=== PATIENT | male | born 1930 ===

== ENCOUNTER 2017-03-25 13:03 | Inpatient (IN) | payer MEDICARE ==
--- NOTE | 2017-03-25 13:53 | ED PDOC ---
HPI: Psych/Substance Abuse Time Seen by Provider: 03/25/17 13:12 Chief Complaint (Nursing): Psychiatric Evaluation Chief Complaint (Provider): [email or web address] person Additional Complaint(s): 87yo M with HTN and pacemaker states that he has been have increasing anxiety and numbness/tingling to LE for past couple of months-states that he fell in house ktichen floor in November of 2016 and has been doing PTx but now unable to walk. pt states he is having anxiety due to this. Family however is saying that pt is shwoing signs of phobia unwilling to get out of bed to walk, dec appetite and crying during the day. pt denies SI/HI or depression. family believes he is depressed. family states that pt has been showing signs of dementia, forgetting things saying confusing things, and have noted that he is unstable Past Medical History Reviewed: Historical Data, Nursing Documentation, Vital Signs Vital Signs: Last Vital Signs Temp 98.4 F 03/25/17 13:10 Pulse 71 03/25/17 13:10 Resp 18 03/25/17 13:10 BP 164/90 H 03/25/17 13:10 Pulse Ox 99 03/25/17 13:10 - Medical History PMH: No Chronic Diseases - Family History Family History: States: No Known Family Hx - Allergies Allergies/Adverse Reactions: Allergies Allergy/AdvReac Type Severity Reaction Status Date / Time No Known Allergies Allergy Verified 03/25/17 13:10 Review of Systems ROS Statement: Except As Marked, All Systems Reviewed And Found Negative Constitutional: Negative for: Fever, Chills Musculoskeletal: Positive for: Other (hip discomfort) Physical Exam - Reviewed Nursing Documentation Reviewed: Yes Vital Signs Reviewed: Yes - Physical Exam Appears: Positive for: Well, Non-toxic, No Acute Distress Head Exam: Positive for: ATRAUMATIC, NORMAL INSPECTION, NORMOCEPHALIC Skin: Positive for: Normal Color, Warm, DRY Eye Exam: Positive for: Normal appearance, EOMI, PERRL ENT: Positive for: Normal ENT Inspection Neck: Positive for: Normal, Painless ROM Cardiovascular/Chest: Positive for: Regular Rate, Rhythm Respiratory: Positive for: CNT, Normal Breath Sounds Gastrointestinal/Abdominal: Positive for: Normal Exam, Bowel Sounds, Soft. Negative for: Tenderness Back: Positive for: Normal Inspection. Negative for: Vertebral Tenderness Extremity: Positive for: Normal ROM. Negative for: Tenderness, Swelling Neurologic/Psych: Positive for: Alert, Oriented - Laboratory Results Result Diagrams: 03/25/17 14:20 03/25/17 14:20 - ECG O2 Sat by Pulse Oximetry: 99 - Radiology X-Ray: Interpreted by Me X-Ray Interpretation: No Acute Disease - CT Scan/US head Other Rad Studies (CT/US): Radiology Report Reviewed (NAD) - Progress ED Course And Treament: pt will get CT of head due to family accounts that he is losing his balance, xray of hip and cbc/cmp/UA/ammonia/EKG chest xray Re-evaluation Time: 17:12 Condition: Re-examined (pt began crying-pt given xanax for acute anxiety) Medical Decision Making Medical Decision Making: pt given Kdur for low K+ Pt will be admitted for depression under MD Jd stable for admission. Disposition - Clinical Impression Clinical Impression: Depression - Patient ED Disposition Is Patient to be Admitted: Yes - Disposition Disposition Time: 17:13 Condition: STABLE Forms: [employer] (Ukrainian) - Pt Status Changed To: Hospital Disposition Of: Inpatient - Admit Certification Admit to Inpatient:: After my assessment, the patient will require hospitalization for at least two midnights. This is because of the severity of symptoms shown, intensity of services needed, and/or the medical risk in this patient being treated as an outpatient. - POA Present On Arrival: None
[2017-03-25 14:53] LABS: BASO # 0.1 K/uL (0.0-0.2); BASO % 0.7 % (0.0-2.0); EOS # 0.1 K/uL (0.0-0.7); EOS % 1.3 % (0.0-4.0); LYMPH # 1.2 K/uL (1.0-4.3); LYMPH % 14.8 % (20.0-40.0); MEAN CELL VOLUME 95.8 fl (80.0-94.0); MEAN CORPUSCULAR HEMOGLOBIN 32.7 pg (27.0-31.0); MEAN CORPUSCULAR HGB CONC 34.2 g/dL (33.0-37.0); MEAN PLATELET VOLUME 8.3 fl (7.2-11.7); MONO # 0.5 K/uL (0.0-0.8); MONO % 5.8 % (0.0-10.0); NEUT # 6.1 K/uL (1.8-7.0); NEUT % 77.4 % (50.0-75.0); NRBC % 0.1 % (0.0-0.0); RED CELL DISTRIBUTION WIDTH 13.8 % (11.5-14.5); WHITE BLOOD COUNT 7.9 K/uL (4.8-10.8)
[2017-03-25 14:56] LABS: ALB/GLOB RATIO 1.4 (1.0-2.1); ALKALINE PHOSPHATASE 99 U/L (38-126); ALT/SGPT 19 U/L (21-72); AST/SGOT 21 U/L (17-59); BILIRUBIN,TOTAL 1.3 mg/dl (0.2-1.3); BLOOD UREA NITROGEN 18 mg/dl (9-20); CARBON DIOXIDE 28 mmol/L (22-30); CHLORIDE 103 mmol/L (98-107); GFR AFRICAN-AMERICAN > 60; GLUCOSE,RANDOM 122 mg/dL (75-110); POTASSIUM 3.3 MMOL/L (3.6-5.0); SODIUM 141 mmol/l (132-148); TOTAL PROTEIN 6.8 G/DL (6.3-8.2)
[2017-03-25 15:19] LABS: RBC URINE 4 /hpf (0-3); URINE BACTERIA RARE (<OCC); URINE BILIRUBIN NEGATIVE (NEGATIVE); URINE BLOOD NEGATIVE (NEGATIVE); URINE COLOR YELLOW (YELLOW); URINE GLUCOSE (UA) NEG (Normal); URINE KETONE NEGATIVE (NEGATIVE); URINE LEUKOCYTE ESTERASE NEG Leu/uL (Negative); URINE PROTEIN 30 mg/dL (NEGATIVE); URINE UROBILINOGEN 0.2-1.0 mg/dL (0.2-1.0); WBC URINE 2 /hpf (0-5)
--- NOTE | 2017-03-25 16:18 | CT ---
PROCEDURE: CT HEAD WITHOUT CONTRAST. HISTORY: memory changes, gait changes COMPARISON: None available. TECHNIQUE: Axial computed tomography images were obtained through the head/brain without intravenous contrast. Radiation dose: Total exam DLP = 912.04 mGy-cm. This CT exam was performed using one or more of the following dose reduction techniques: Automated exposure control, adjustment of the mA and/or kV according to patient size, and/or use of iterative reconstruction technique. FINDINGS: HEMORRHAGE: No acute parenchymal, subarachnoid nor extra-axial hemorrhage. BRAIN: Moderate to fairly significant diffuse/ confluent chronic white matter ischemic changes seen extending peripherally into the deep and subcortical white matter both cerebral hemispheres. There also appears to be some extension of these changes into white matter tracts of both basal nuclei. . No obvious parenchymal nor extra-axial mass or collection seen on this noncontrast study. Vascular calcifications both carotid siphons. Moderate generalized volume loss. VENTRICLES: No evidence of obstructive hydrocephalus. CALVARIUM: No acute calvarial fracture seen. PARANASAL SINUSES: Minimal mucosal thickening seen within a few ethmoid air cells extending superiorly into the frontal sinus. There is also minimal mucosal thickening in the sphenoid sinus MASTOID AIR CELLS: Unremarkable as visualized. No inflammatory changes. OTHER FINDINGS: None. IMPRESSION: No acute intracranial hemorrhage. Moderate to fairly significant chronic white matter ischemic changes that extend peripherally into the deep and subcortical white matter both cerebral hemispheres as well as into the white matter tracts of both basal nuclei.
[2017-03-25] MEDS ORDERED: Potassium Chloride 10 mEq ER Tab PO ONE ×2 (16:19→16:31)
[2017-03-25 18:02] VITALS: O2SAT 94
--- NOTE | 2017-03-25 18:36 | RAD ---
HISTORY: medical exam COMPARISON: No prior. FINDINGS: LUNGS: Suspect minor bibasilar atelectasis and or scarring. . There is a vague nodular type density in the right lateral infrahilar region that probably represents vessel on end artifact. Small nodule or a cluster of small calcification not excluded not excluded. . Followup the CT scan chest recommended PLEURA: No significant pleural effusion identified, no pneumothorax apparent. CARDIOVASCULAR: Heart size is within range of normal. Aorta is ectatic and uncoiled. In situ bipolar pacemaker. OSSEOUS STRUCTURES: Minor multilevel degenerative spondylosis of the thoracic spine. There is also a very minor dextroscoliosis centered in the lower thoracic region. VISUALIZED UPPER ABDOMEN: Normal. OTHER FINDINGS: None. IMPRESSION: Suspect minor bibasilar atelectasis and or scarring. . There is a vague nodular type density in the right lateral infrahilar region that probably represents vessel on end artifact. Small nodule or a cluster of small calcification not excluded not excluded. . Followup the CT scan chest recommended. Note this report was placed in PA review folder for followup
[2017-03-25] MEDS ORDERED: Alum-Mag Hydrox-Simethicone Susp (30 mL) PO PRN (19:55)
[2017-03-25] MEDS ORDERED: Bismuth Subsalicylate 262 mg/15 ml Sus (240 ml) PO PRN (19:55)
[2017-03-25] MEDS ORDERED: Magnesium Hydroxide Susp 30 ml UD PO PRN (19:55)
--- NOTE | 2017-03-25 20:04 | PCM.BM ---
<Claudine Campuzano - Last Filed: 03/25/17 20:01> Treatment Plan Problems - Problems identified on initial assessmt hopelessness/helplessness Date Initiated: 03/25/17 Time Initiated: 20:02 Assessment reference: NA Status: Active Altered Sleep Patterns Date Initiated: 03/25/17 Time Initiated: 20:03 Assessment reference: NA Status: Active Treatment assets and liabiliti Patient Assests: adapts well, cooperative, self-reliant, good support system, negotiates basic needs Patient Liabilities: medical problems - Milieu Protocol Maintain good personal hygiene: daily Encourage regular showers, daily Remind patient to perform daily oral care, other Assist patient to perform ADL's (prn) Conduct patient checks and document Observation sheet: Q15 minutes, Constant Maintain personal safety: every shift Educate patient to report safety concerns to staff, every shift Monitor environment for contraband/sharps Medication safety: Monitor for expected outcome, potential side effects: every shift, Assess barriers to learning: every shift, Assess readiness for medication education: every shift <Louise Coburn - Last Filed: 03/26/17 08:45> - Diagnosis (1) Depression Status: Acute Interventions: Medication management, Individual and group therapy, psychoeducation 03/26/17 08:45 <Shannan Gordon - Last Filed: 03/27/17 11:38> Family Contact Family involvement: Family/SO is involved Family contact: Patient agrees to contact Family contact name: Pat Brar Family contacted how many times per week?: 2 Family contact comment: [phone] - Goals for Treatment Patient goals for treatment: "The desire to get better again. I have grecia that God will help me get better." Discharge/Continuing Care - Education Needs Education Needs: Family Medication, Family Diagnosis/Disease Process, Family Coping Skills, Family Placement options, Family Community resources, Family Activities of Daily Living, Family Nutrition, Family Uses of Medical Equipment, Family Health Practices/Safety, Family Personal Hygiene/Grooming, Family Aftercare Safety Plan, Patient Medication, Patient Diagnosis/Disease Process, Patient Coping Skills, Patient Placement options, Patient Community resources, Patient Activities of Daily Living, Patient Nutrition, Patient Uses of Medical Equipment, Patient Health Practices/Safety, Patient Personal Hygiene/Grooming, Patient Aftercare Safety Plan - Discharge Discharge Criteria: Tolerates medication w/o severe side effects, Normal sleep pattern, Ability to care for self, Reduction of target symptoms Discharge to:: Other (Subacute Rehabilitation) - Additional Comments 03/27/17 11:23 Pt discussed in team meeting. Pt's progress on the unit discussed. Pt evaluated by PT and recommended CINDY. Pt's medications reviewed and discussed. Pt's social and medical issues discussed. Auto Technician Mechanic will contact Pat ascencio for collateral information and to discuss team meeting and treatment plan. Pt provided process description writer with verbal autho/consent to contact Pat ascencio 03/27/17 11:36 - Treatment Team Participation Discussed with Family/SO: Yes (Treatment plan will be discussed with family via telephone) Was Patient/Family/SO present at Treatment Team Meeting: Yes
[2017-03-26 07:47] LABS: BASO # 0.1 K/uL (0.0-0.2); BASO % 0.9 % (0.0-2.0); EOS # 0.2 K/uL (0.0-0.7); EOS % 2.5 % (0.0-4.0); HEMATOCRIT 41.1 % (35.0-51.0); LYMPH # 1.3 K/uL (1.0-4.3); LYMPH % 20.9 % (20.0-40.0); MEAN CORPUSCULAR HEMOGLOBIN 32.8 pg (27.0-31.0); MEAN CORPUSCULAR HGB CONC 34.2 g/dL (33.0-37.0); MEAN PLATELET VOLUME 8.2 fl (7.2-11.7); MONO # 0.5 K/uL (0.0-0.8); MONO % 8.4 % (0.0-10.0); NEUT # 4.2 K/uL (1.8-7.0); NEUT % 67.3 % (50.0-75.0); RED CELL DISTRIBUTION WIDTH 13.8 % (11.5-14.5); WHITE BLOOD COUNT 6.3 K/uL (4.8-10.8)
[2017-03-26 08:03] LABS: BLOOD UREA NITROGEN 18 mg/dl (9-20); CARBON DIOXIDE 32 mmol/L (22-30); CHLORIDE 102 mmol/L (98-107); CHOLESTEROL 133 mg/dL (0-199); GFR AFRICAN-AMERICAN > 60; GLUCOSE,RANDOM 120 mg/dL (75-110); POTASSIUM 3.7 MMOL/L (3.6-5.0); SODIUM 141 mmol/l (132-148)
[2017-03-26 08:19] LABS: T4 8.85 ug/dl (5.5-11.0)
[2017-03-26 08:32] LABS: THYROID STIMULATING HORMONE 1.32 mIU/ML (0.46-4.68)
--- NOTE | 2017-03-26 08:51 | PCM.PSYCH ---
Initial Psychiatric Evaluation - Initial Psychiatric Evaluation Type of Admission: Voluntary Legal Status: Capacity Chief Complaint (in patient's own words): I'm depressed. Patient's Reaction to Hospitalization: 87Y/O MALE WHO WAS BROUGHT TO THIS ER BY HIS FAMILY AT THE RECOMMENDATION OF HIS PMD, DR. CARDOSO, FOR CRISIS EVALUATION AND POSSIBLE GEROPSYCHIATRIC ADMISSION DUE TO OVERWHELMING ANXIETY AND DEPRESSION THAT HAS COMPLETELY DELIBITATED THIS PT AND LEFT HIM UNABLE TO FUNCTION. PT REPORTED THAT HE FELL IN HIS KITCHEN FOUR MONTHS AGO AND EVER SINCE THAT MOMENT HE CANNONT WALK WHEREAS HE IS OVERWHELMINGLY AFRAID THAT HE WILL FALL AGAIN. HE REPORTED THAT HE IS BED RIDDEN AND ALL HE DOES IS CRY. HE ALSO REPORTED THAT HE IS VERY NERVOUS ALL THE TIME BECAUSE HE HAS PROFOUND THOUGHTS OF FALLING OUT OF BED AND THESE INTRUSIVE THOUGHTS CAUSE HIM TO NOT BE ABLE TO SLEEP WHEREAS HE FEARS FALLING ALL THE TIME. HE REPORTED THAT HE IS DESPERATE FOR HELP BECAUSE HE CANNOT LIVE LIKE THIS ANYMORE. HE REPORTED THAT HE REMEMBERED A TIME WHEN HE WAS VIBRANT AND ACTIVE AND NOW HIS ANXIETY AND DEPRESSION IS SO BAD THAT IT HAS LEFT HIM FEELING HOPELESS AND HELPLESS. HE DENIED SI/HI OR ANY THOUGHTS OF SELF HARM. HE DENIED HAVING A/V/T HALLUCINATIONS; NOR WAS HE OBSERVED TO BE RESPONDING TO INTERNAL/EXTERNAL STIMULI. HE DISPLAYED NO SIGNS OF PSYCHOSIS OR PSYCHIATRIC DANGEROUSNESS. THE PT WAS ALERT AND ORIENTED X3. HE REPORTED SIGNIFICANT SLEEP AND APPETITE DISTURBANCES. COLLATERAL OBTAINED BY ANIMAL PATHOLOGY TEACHER FROM PT'S DAUGHTER JOSE RAMOS [phone] REVEALS THAT THE PT FELL 4 MONTHS AGO IN HIS KITCHEN AND EVER SINCE THEN HE HAS BEEN BED RIDDEN WHEREAS HE HAS AN EXTREME PHOBIA OF FALLING AGAIN THEREFORE HE DOES NOT TRY TO WALK. SHE REPORTED THAT HE IS EXTREMELY ANXIOUS AND DEPRESSED ALL THE TIME. SHE REPORTED THAT HE IS EXPERIENCING A DECREASE IN HIS SLEEP PATTERN AND APPETITE. SHE REPORTED THAT HE CONSTANTLY IS CRYING AND FEELS HELPLESS AND HOPELESS. PT'S DAUGHTER REPORTED THAT THE PT'S PMD, DR. CARDOSO, ADVISED THEM TO BRING THE PT TO THIS HOSPITAL FOR EVALUATION FOR POSSIBLE ADMISSION TO THE GEROPYSCHIATRIC UNIT. SHE REPORTED THAT THE PT IS IN DIRE NEED OF ADMISSION. PPHX: DENIES PAST PSYCH HX OR TX W/ MEDICTIONS. NO H/O SUICIDE ATTEMPTS, NO CURRENT SUICIDAL IDEATION/PLAN/INTENT. PMHX: HTN, +PACEMAKER, BPH SHX: DENIES DRUGS/ETOH/CIG. . LIVES W/ AND TWO CHILDREN. FROM [place]. FHX: NO KNOWN FAMILY H/O MENTAL ILLNESS Current Medications: Active Medications Generic Name Dose Route Start Last Admin Trade Name Freq PRN Reason Stop Dose Admin Acetaminophen 650 mg 03/25/17 19:55 Tylenol 325mg Tab PO Q4 PRN Pain, moderate (4-7) Al Hydrox/Mg Hydrox/Simethicone 30 ml 03/25/17 19:55 Maalox Plus 30 Ml PO Q4 PRN Dyspepsia Bismuth Subsalicylate 524 mg 03/25/17 19:55 Pepto-Bismol PO Q4 PRN Diarrhea Hydralazine HCl 50 mg 03/25/17 21:00 03/25/17 21:24 Apresoline PO 50 mg Q12 SANGEETA Administration Lisinopril 20 mg 03/26/17 09:00 Zestril PO DAILY SANGEETA Lorazepam 0.5 mg 03/25/17 19:55 03/25/17 23:56 Ativan PO 04/08/17 19:56 0.5 mg HS PRN Administration Insomnia Lorazepam 0.5 mg 03/25/17 19:55 Ativan PO 04/08/17 19:56 Q6 PRN Anixety/Agitation Magnesium Hydroxide 30 ml 03/25/17 19:55 Milk Of Magnesia PO HS PRN Constipation Metoprolol Tartrate 100 mg 03/26/17 09:00 Lopressor PO BID SANGEETA Tamsulosin HCl 0.4 mg 03/26/17 09:00 Flomax PO DAILY SANGEETA Past Psychiatric History - Past Psychiatric History Previous Treatment History: None Pertinent Medical Hx (Current Medical&Sleep Prob, Allergies): Allergies Allergy/AdvReac Type Severity Reaction Status Date / Time divalproex sodium AdvReac Mild increase Verified 03/25/17 19:11 [From Depakote] restlessness Lisinopril [Zestril] 20 mg PO DAILY 03/25/17 Metoprolol Tartrate 100 mg PO BID 03/25/17 Tamsulosin [Flomax] 0.4 mg PO DAILY 03/25/17 hydrALAZINE [hydralazine Hydrochloride] 50 mg PO Q12 03/25/17 Review of Systems - Psychiatric Psychiatric: As Per HPI, Abnormal Sleep Pattern, Anhedonia, Anxiety, Change in Appetite, Confusion, Depression, Difficulty Concentrating, Hopelessness, Memory Loss Mental Status Examination - Personal Presentation Personal Presentation: Looks stated age - Affect Affect: Depressed (Tearful) - Motor Activity Motor Activity: Calm - Reliability in Providing Information Reliability in Providing Information: Fair - Speech Speech: Organized - Mood Mood: Depressed - Formal Thought Process Formal Thought Process: No Impairment - Hallucinations/Delusions Additional comments: No AH/VH/paranoia/delusions - Obsessions/Compulsions Obsessions: No Compulsions: No - Cognitive Functions Orientation: Person, Place, Situation, Time Sensorium: Alert Attention/Concentration: Attentive Estimate of Intelligence: Average Judgement: Intact, as evidence by: Good judgement, Intact, as evidence by: Insight regarding need for hospitalization Memory: Recent intact, as evidence by: Ability to recall events of the day, Remote intact, as evidenced by: Abilit to recall sig. life events - Risk Risk: Diminished functioning - Strength & Assets Inventory Strength & Assets Inventory: Family support, Cooperative - Limitations Limitations: Decreased memory, recent DSM 5 DX - DSM 5 DSM 5 Diagnosis: Major Depressive Disorder, Generalized Anxiety Disorder, Specific Phobia - Recommended/Plan of Treatment Treatment Recommendations and Plan of Treatment: Major Depressive Disorder, Generalized Anxiety Disorder, Specific Phobia -Admit to geropsychiatry unit -Start Zoloft 50 mg PO Daily -Ativan 0.5 mg PO PRN anxiety -Individual and group therapy -Obtain collateral history -Physical therapy -Medicine consult -Disposition planning -Psychology consult to evaluate for cognitive impairment Projected ELOS: 5-8 days Discharge Plan and Discharge Criteria: -Discharge when psychiatrically stable - Smoking Cessation Smoking Cessation Initiated: No Reason for not providing: Not indicated
[2017-03-26 08:52] LABS: IRON 64 ug/dL (49-181)
[2017-03-26 17:33] LABS: FOLATE > 20.0 ng/mL
--- NOTE | 2017-03-27 08:43 | RAD ---
PROCEDURE: The pelvis and bilateral hips dated HISTORY: COMPARISON: No prior study available for comparison allComparison TECHNIQUE: Frontal view of the pelvis and frogleg lateral views of the right and left hips performed. FINDINGS: No evidence of acute displaced fracture nor dislocation. The osseous structures appear intact. Both femoral heads appropriately located within the respective acetabula. Tiny radiopaque densities seen overlying both hip joints nonspecific. . Minor degenerative changes with spurring of the superolateral margins of the acetabular roofs. Mild sclerosis both SI joints. Mild degenerative spondylosis lumbar spine IMPRESSION: No evidence of acute displaced fracture nor dislocation.
--- NOTE | 2017-03-27 08:43 | PCM.PYCHPN ---
Psychiatric Progress Note - Psychiatric Progress Note Patient seen today, length of contact: Patient evaluated, case discussed with team, chart reviewed, 35 min Patient Chief Complaint: I'm depressed. Problems Identified/Issues Discussed: Patient continues to report severe anxiety. He is afraid to leave his bed. He also reports feeling depressed and is tearful at times. He is observed eating calmly. No psychosis/delusions/SI/HI. Medication Change: Yes (Start Ativan 0.25 mg PO BID) Medical Record Reviewed: Yes Consults ordered or reviewed: Physical Therapy consult, medicine consult Mental Status Examination - Cognitive Function Orientation: Person, Place, Situation, Time Memory: Impaired Fund of Knowledge: WNL Decription of patient's judgement and insights: Fair I/J - Mood Mood: Depressed, Anxious - Affect Affect: Depressed (Tearful) - Speech Speech: Soft - Formal Thought Process Formal Thought Process: No Impairment Psychotic Thoughts and Behaviors: No AH/VH/paranoia/delusions - Suicidal Ideation Suicidal Ideation: No - Homicidal Ideation Homicidal Ideation: No Goal/Treatment Plan - Goal/Treatment Plan Need for Continued Stay: Remain at risks for inpatient hospitalization, Severe depression anxiety, Discharge may exacerbated symptoms Progress Toward Problem(s) and Goals/Treatment Plan: Major Depressive Disorder, Generalized Anxiety Disorder, Specific Phobia -Continue Zoloft 50 mg PO Daily -Start Ativan 0.25 mg PO BID -Individual and group therapy -Obtain collateral history -Physical therapy -Medicine consult -Disposition planning -Psychology consult to evaluate for cognitive impairment Estimated Date of D/C: 03/30/17 - Smoking Cessation Smoking Cessation Initiated: No Reason for not providing: Not indicated
--- NOTE | 2017-03-27 12:32 | CP.PCM.CON ---
History of Present Illness - History of Present Illness History of Present Illness: History obtained from pt and chart PMD : Dr Garcia Chief Complaint : "I came for depession and anxiety" HPI : 87 y/o gent with Hx of HTN, Arrhythmia s/p Pacemaker placement , BPH, was brought in by family upon the recommendation of his PMD bec since pt fell 4 months ago , he has been very anxious and afraid to get out of bec in fear of falling again. Patient tells me that he has been feeling depressed because he could not go out of his home bec he is afraid he will fall again. he states that he has been very weak since he fell 4 mos ago. Denies any pain and able to move all his extremities. Denies CP, no SOB, no cough , no abd pain, no fever. Review of Systems - Review of Systems All systems: reviewed and no additional remarkable complaints except - Constitutional Constitutional: Lethargy, Weakness. absent: Fever, Headache Additional comments: feel once at home 4 mos ago - EENT Eyes: absent: Change in Vision Nose/Mouth/Throat: absent: Nasal Congestion, Nasal Discharge, Sore Throat - Cardiovascular Cardiovascular: absent: Chest Pain, Chest Pain with Activity, Diaphoresis, Dyspnea, Dyspnea on Exertion - Respiratory Respiratory: absent: Cough, Dyspnea, Hemoptysis - Gastrointestinal Gastrointestinal: absent: Abdominal Pain, Nausea, Vomiting - Genitourinary Genitourinary: Urinary Frequency. absent: Dysuria - Musculoskeletal Musculoskeletal: Muscle Weakness. absent: Back Pain - Integumentary Integumentary: absent: Lesions - Neurological Neurological: absent: Dizziness, Focal Weakness, Sensory Deficit - Psychiatric Psychiatric: Anxiety, Depression - Endocrine Endocrine: absent: Polydipsia, Polyphagia, Polyuria - Hematologic/Lymphatic Hematologic: absent: Easy Bleeding, Easy Bruising Past Patient History - Infectious Disease Hx of Infectious Diseases: None - Tetanus Immunizations Tetanus Immunization: Unknown - Past Medical History & Family History Past Medical History?: Yes Past Family History: Reviewed and not pertinent - Past Social History Smoking Status: Never Smoked Chewing Tobacco Use: No Cigar Use: No Alcohol: None Drugs: Denies Home Situation {Lives}: With Family Domestic Violence: Negative - CARDIAC Hx Cardiac Disorders: Yes Hx Hypertension: Yes Hx Pacemaker: Yes - PULMONARY Hx Respiratory Disorders: No Hx Tuberculosis: No - NEUROLOGICAL HX Cerebrovascular Accident: No - HEENT Hx HEENT Problems: No Hx Cataracts: Yes (L eye) - RENAL Hx Chronic Kidney Disease: No - ENDOCRINE/METABOLIC Hx Endocrine Disorders: No - HEMATOLOGICAL/ONCOLOGICAL Hx Cancer: No Hx Human Immunodeficiency Virus (HIV): No - INTEGUMENTARY Hx Dermatological Problems: No - MUSCULOSKELETAL/RHEUMATOLOGICAL Hx Falls: Yes (slipped in his kitchen 4 months ago) - GASTROINTESTINAL Hx Gastrointestinal Disorders: No - GENITOURINARY/GYNECOLOGICAL Hx Prostate Problems: Yes (BPH) Hx Sexually Transmitted Disorders: No - PSYCHIATRIC Hx Substance Use: No - SURGICAL HISTORY Hx Surgeries: Yes Hx Eye Surgery: Yes (R cataract) - ANESTHESIA Hx Anesthesia: Yes Hx Anesthesia Reactions: No Hx Malignant Hyperthermia: No Has any member of the family had a problem w/ anesthesia?: No Meds Allergies/Adverse Reactions: Allergies Allergy/AdvReac Type Severity Reaction Status Date / Time divalproex sodium AdvReac Mild increase Verified 03/25/17 19:11 [From Depakote] restlessness - Medications Medications: Current Medications Acetaminophen (Tylenol 325mg Tab) 650 mg PO Q4 PRN PRN Reason: Pain, moderate (4-7) Al Hydrox/Mg Hydrox/Simethicone (Maalox Plus 30 Ml) 30 ml PO Q4 PRN PRN Reason: Dyspepsia Bismuth Subsalicylate (Pepto-Bismol) 524 mg PO Q4 PRN PRN Reason: Diarrhea Hydralazine HCl (Apresoline) 50 mg PO Q12 [facility] Last Admin: 03/27/17 08:35 Dose: 50 mg Lisinopril (Zestril) 20 mg PO DAILY [facility] Last Admin: 03/27/17 08:37 Dose: 20 mg Lorazepam (Ativan) 0.5 mg PO HS PRN PRN Reason: Insomnia Stop: 04/08/17 19:56 Last Admin: 03/26/17 21:02 Dose: 0.5 mg Lorazepam (Ativan) 0.5 mg PO Q6 PRN PRN Reason: Anixety/Agitation Stop: 04/08/17 19:56 Lorazepam (Ativan) 0.25 mg PO BID [facility] Last Admin: 03/27/17 09:56 Dose: 0.25 mg Magnesium Hydroxide (Milk Of Magnesia) 30 ml PO HS PRN PRN Reason: Constipation Metoprolol Tartrate (Lopressor) 100 mg PO BID [facility] Last Admin: 03/27/17 08:36 Dose: 100 mg Sertraline HCl (Zoloft) 50 mg PO DAILY [facility] Last Admin: 03/27/17 08:36 Dose: 50 mg Tamsulosin HCl (Flomax) 0.4 mg PO DAILY [facility] Last Admin: 03/27/17 08:37 Dose: 0.4 mg Physical Exam - Constitutional Appears: No Acute Distress - Head Exam Head Exam: NORMAL INSPECTION, NORMOCEPHALIC - Eye Exam Eye Exam: EOMI, Normal appearance Pupil Exam: NORMAL ACCOMODATION - ENT Exam ENT Exam: Mucous Membranes Moist, Normal External Ear Exam - Neck Exam Neck exam: Positive for: Full Rom. Negative for: Meningismus - Respiratory Exam Respiratory Exam: NORMAL BREATHING PATTERN. absent: Respiratory Distress - Cardiovascular Exam Cardiovascular Exam: REGULAR RHYTHM, +S1, +S2 Additional comments: left Pacemaker - GI/Abdominal Exam GI & Abdominal Exam: Normal Bowel Sounds, Soft. absent: Tenderness - Back Exam Back exam: FULL ROM. absent: CVA tenderness (L), CVA tenderness (R) - Neurological Exam Neurological exam: Alert, CN II-XII Intact, Oriented x3, Reflexes Normal - Psychiatric Exam Psychiatric exam: Flat Affect, Normal Mood - Skin Skin Exam: Dry, Normal Color, Warm Results - Vital Signs Recent Vital Signs: Last Vital Signs Temp 97.7 F 03/27/17 05:32 Pulse 60 03/27/17 08:37 Resp 19 03/27/17 05:32 BP 130/69 03/27/17 08:37 Pulse Ox 94 L 03/25/17 18:02 - Labs Result Diagrams: 03/26/17 07:10 03/26/17 07:10 Labs: Laboratory Results - last 24 hr 03/26/17 03/26/17 07:10 07:10 Folate > 20.0 RPR Nonreactive - EKG Data EKG Interpreted by: Myself - EKG Data EKG comments: Dual paced rhythm Assessment & Plan (1) HTN (hypertension) Status: Chronic (2) BPH (benign prostatic hyperplasia) Status: Chronic (3) Status post biventricular pacemaker Status: Chronic (4) Incidental lung nodule Status: Suspected (5) Depression with anxiety Status: Acute (6) Fall Status: Chronic (7) DVT prophylaxis Status: Acute - Assessment and Plan (Free Text) Assessment: 1) HTN (hypertension) Status: Chronic cont Home meds- Hydralazine, metoprolol, Lisinopril (2) BPH (benign prostatic hyperplasia) Status: Chronic cont Flomax (3) Status post biventricular pacemaker Status: Chronic EKG shows paced rhythm (4) Incidental lung nodule vs Vessel vs Artifact Status: Suspected CT of chest (5) Depression with anxiety Status: Acute mgt per Psych Pt is on Zoloft (6) Fall Status: Chronic Hx of Fall [address] of head ; no bleed, no acute finding Hip/Pelvic xray : no fracture ? Gait instability- PT consult (7) DVT prophylaxis Status: Acute Lovenox
--- NOTE | 2017-03-28 08:30 | PCM.PYCHPN ---
Psychiatric Progress Note - Psychiatric Progress Note Patient seen today, length of contact: Patient evaluated, case discussed with team, chart reviewed, 35 min Patient Chief Complaint: I'm depressed. Problems Identified/Issues Discussed: Patient continues to report severe anxiety. He continues to be afraid to leave his bed. He also reports feeling depressed and is tearful at times. He is observed eating calmly and has been sleeping well. He is hopeful that the medications will help treat his anxiety and depression. No psychosis/delusions/ SI/HI. Medication Change: Yes (Switch to Clonazepam 0.25 mg PO BID) Medical Record Reviewed: Yes Consults ordered or reviewed: Medicine consult appreciated Mental Status Examination - Cognitive Function Orientation: Person, Place, Situation, Time Memory: Impaired Concentration: Poor Association: Loose Fund of Knowledge: WNL Decription of patient's judgement and insights: Fair I/J - Mood Mood: Depressed, Anxious - Affect Affect: Depressed (Tearful) - Speech Speech: Soft - Formal Thought Process Formal Thought Process: Loosening of associations Psychotic Thoughts and Behaviors: No AH/VH/paranoia/delusions - Suicidal Ideation Suicidal Ideation: No - Homicidal Ideation Homicidal Ideation: No Goal/Treatment Plan - Goal/Treatment Plan Need for Continued Stay: Remain at risks for inpatient hospitalization, Severe depression anxiety, Discharge may exacerbated symptoms Progress Toward Problem(s) and Goals/Treatment Plan: Major Depressive Disorder, Generalized Anxiety Disorder, Specific Phobia -Continue Zoloft 50 mg PO Daily -Stop Ativan, Start Clonazepam 0.25 mg PO BID -Individual and group therapy -Obtain collateral history -Physical therapy -Medicine consult appreciated- will attempt to get Chest CT when patient is less anxious and able to cooperate w/ imaging studies -Disposition planning -Psychology consult to evaluate for cognitive impairment Estimated Date of D/C: 04/02/17 - Smoking Cessation Smoking Cessation Initiated: No Reason for not providing: Not indicated
[2017-03-28] MEDS: Enoxaparin 40 mg Syringe SC SCH (08:57)
[2017-03-29] MEDS: Enoxaparin 40 mg Syringe SC SCH (08:51)
--- NOTE | 2017-03-29 10:58 | PCM.PYCHPN ---
Psychiatric Progress Note - Psychiatric Progress Note Patient seen today, length of contact: Patient evaluated, case discussed with team, chart reviewed, 35 min Patient Chief Complaint: I'm anxious Problems Identified/Issues Discussed: Patient continues to report severe anxiety. He tried to participate in physical therapy, which is an improvement from previous attempts. He continues to be afraid to leave his bed. He also reports feeling depressed. He is observed eating well. No psychosis/delusions/SI/HI. Medication Change: Yes (Increase Clonazepam to 0.5 mg PO BID) Medical Record Reviewed: Yes Mental Status Examination - Cognitive Function Orientation: Person, Place, Situation, Time Memory: Impaired Concentration: Poor Association: Loose Fund of Knowledge: WNL Decription of patient's judgement and insights: Fair I/J - Mood Mood: Depressed, Anxious - Affect Affect: Depressed (Tearful) - Speech Speech: Soft - Formal Thought Process Formal Thought Process: Loosening of associations Psychotic Thoughts and Behaviors: No AH/VH/paranoia/delusions - Suicidal Ideation Suicidal Ideation: No - Homicidal Ideation Homicidal Ideation: No Goal/Treatment Plan - Goal/Treatment Plan Need for Continued Stay: Remain at risks for inpatient hospitalization, Severe depression anxiety, Discharge may exacerbated symptoms Progress Toward Problem(s) and Goals/Treatment Plan: Major Depressive Disorder, Generalized Anxiety Disorder, Specific Phobia -Continue Zoloft 50 mg PO Daily -Increase Clonazepam to 0.5 mg PO BID -Individual and group therapy -Physical therapy -Medicine consult appreciated -Disposition planning -Psychology consult to evaluate for cognitive impairment Estimated Date of D/C: 04/02/17
--- NOTE | 2017-03-30 08:52 | PCM.PYCHPN ---
Psychiatric Progress Note - Psychiatric Progress Note Patient seen today, length of contact: Patient evaluated, case discussed with team, chart reviewed, 35 min Patient Chief Complaint: I'm anxious Problems Identified/Issues Discussed: Patient continues to be anxious and depressed but he is more agreeable to getting out of bed (w/ staff assistence) and more agreeable to try to stand during PT w/ encouragement. He also sings pleasantly at times. He continues to be afraid to leave his bed w/o help. He is observed eating well. No psychosis/delusions/SI/HI. Medication Change: Yes (Clonazepam 0.25 mg PO Daily/ 0.5 mg PO HS) Medical Record Reviewed: Yes Mental Status Examination - Cognitive Function Orientation: Person, Place, Situation, Time Memory: Impaired Concentration: Poor Association: Loose Fund of Knowledge: WNL Decription of patient's judgement and insights: Fair I/J - Mood Mood: Depressed, Anxious - Affect Affect: Depressed - Speech Speech: Soft - Formal Thought Process Formal Thought Process: Loosening of associations Psychotic Thoughts and Behaviors: No AH/VH/paranoia/delusions - Suicidal Ideation Suicidal Ideation: No - Homicidal Ideation Homicidal Ideation: No Goal/Treatment Plan - Goal/Treatment Plan Need for Continued Stay: Remain at risks for inpatient hospitalization, Severe depression anxiety, Discharge may exacerbated symptoms Progress Toward Problem(s) and Goals/Treatment Plan: Major Depressive Disorder, Generalized Anxiety Disorder, Specific Phobia -Zoloft 50 mg PO Daily -Clonazepam 0.25 mg PO Daily/ 0.5 mg PO HS -Individual and group therapy -Physical therapy -Medicine consult appreciated -Disposition planning -Psychology consult to evaluate for cognitive impairment Estimated Date of D/C: 04/02/17 - Smoking Cessation Smoking Cessation Initiated: No Reason for not providing: Not indicated
[2017-03-30] MEDS: Enoxaparin 40 mg Syringe SC SCH (09:17)
--- NOTE | 2017-03-30 11:31 | CT ---
PROCEDURE: CT Chest without contrast HISTORY: abn CXR ? lung nodule COMPARISON: Comparison is made to the previous chest x-ray dated 03/25/2017. TECHNIQUE: Contiguous axial images were obtained through the chest without intravenous contrast enhancement. Sagittal and coronal reconstructions were performed. Radiation dose (DLP): 649.25 mGy-cm. This CT exam was performed using one or more of the following dose reduction techniques: Automated exposure control, adjustment of the mA and/or kV according to patient size, and/or use of iterative reconstruction technique. FINDINGS: LUNGS: There is small air space pleural-based consolidation at the lingula may represent atelectasis versus pneumonia. The possibility of neoplasm is less likely but not totally excluded. . There is 6 millimeter calcified nodule at the superior segment of the right lung lower lobe. MEDIASTINUM: The thoracic aorta is ectatic and tortuous. The heart is moderately enlarged. Pacemaker wires are seen extending to the right heart. Main pulmonary artery unremarkable. No vascular congestion. No lymphadenopathy. PLEURA: Small left pleural effusion is noted. BONES: No fracture. No destructive lesion. UPPER ABDOMEN: Grossly unremarkable. OTHER FINDINGS: None. IMPRESSION: Small airspace consolidation at the inferior aspect of the left lung upper lobe/ lingula may represent atelectasis or pneumonia. The possibility of neoplasm is less likely. Follow-up study in 1-3 months is recommended. Small left pleural effusion. Moderate cardiomegaly.
--- NOTE | 2017-03-30 18:34 | CARD ---
APPROVED REPORT EKG Measurement Heart [id number] <Conclusion> AV dual-paced rhythm with occasional ventricular-paced complexes Abnormal ECG
[2017-03-31] MEDS: Enoxaparin 40 mg Syringe SC SCH (08:32)
--- NOTE | 2017-03-31 10:15 | PCM.PYCHPN ---
Psychiatric Progress Note - Psychiatric Progress Note Patient seen today, length of contact: Patient evaluated, case discussed with team, chart reviewed, 35 min Patient Chief Complaint: I'm anxious Problems Identified/Issues Discussed: No significant events overnight. Patient continues to be anxious and depressed but he is more agreeable to getting out of bed (w/ staff assistance). He continues to be afraid to leave his bed w/o help. He is observed eating well. No psychosis/delusions/SI/HI. Diagnostic Results: Chest CT on 03/30/17: Impression- Small airspace consolidation at the inferior aspect of the left lung upper lobe/lingula may represent atelectasis or pneumonia. The possibility of neoplasm is less likely. Follow-up study in 1-3 months if recommended. Small left pleural effusion. Moderate cardiomegaly. Medication Change: No Medical Record Reviewed: Yes Mental Status Examination - Cognitive Function Orientation: Person, Place, Situation, Time Memory: Impaired Concentration: Poor Association: Loose Fund of Knowledge: WNL Decription of patient's judgement and insights: Fair I/J - Mood Mood: Anxious - Affect Affect: Constricted - Speech Speech: Soft - Formal Thought Process Formal Thought Process: Loosening of associations Psychotic Thoughts and Behaviors: No AH/VH/paranoia/delusions - Suicidal Ideation Suicidal Ideation: No - Homicidal Ideation Homicidal Ideation: No Goal/Treatment Plan - Goal/Treatment Plan Need for Continued Stay: Remain at risks for inpatient hospitalization, Severe depression anxiety, Discharge may exacerbated symptoms Progress Toward Problem(s) and Goals/Treatment Plan: Major Depressive Disorder, Generalized Anxiety Disorder, Specific Phobia; Patient is starting to improve clinically, but continues to have severe anxiety about getting out of bed and reports depressive symptoms. -Continue Zoloft 50 mg PO Daily -Continue Clonazepam 0.25 mg PO Daily/ 0.5 mg PO HS -Individual and group therapy -Physical therapy -Medicine consult appreciated -Disposition planning Estimated Date of D/C: 04/03/17 - Smoking Cessation Smoking Cessation Initiated: No Reason for not providing: Not indicated
--- NOTE | 2017-04-01 10:30 | PCM.PYCHPN ---
Psychiatric Progress Note - Psychiatric Progress Note Patient seen today, length of contact: Patient evaluated, case discussed with team, chart reviewed, 35 min Patient Chief Complaint: I'm okay Problems Identified/Issues Discussed: No significant events overnight. Patient reports that his anxiety and depression are improving and he is more agreeable to getting out of bed (w/ staff assistance). He continues to be afraid to leave his bed w/o help. He is observed eating well. No psychosis/delusions/SI/HI. Diagnostic Results: Chest CT on 03/30/17: Impression- Small airspace consolidation at the inferior aspect of the left lung upper lobe/lingula may represent atelectasis or pneumonia. The possibility of neoplasm is less likely. Follow-up study in 1-3 months if recommended. Small left pleural effusion. Moderate cardiomegaly. Medication Change: No Medical Record Reviewed: Yes Mental Status Examination - Cognitive Function Orientation: Person, Place, Situation, Time Memory: Impaired Concentration: Poor Association: Loose Fund of Knowledge: WNL Decription of patient's judgement and insights: Fair I/J - Mood Mood: Anxious - Affect Affect: Constricted - Speech Speech: Soft - Formal Thought Process Formal Thought Process: Loosening of associations Psychotic Thoughts and Behaviors: No AH/VH/paranoia/delusions - Suicidal Ideation Suicidal Ideation: No - Homicidal Ideation Homicidal Ideation: No Goal/Treatment Plan - Goal/Treatment Plan Need for Continued Stay: Remain at risks for inpatient hospitalization, Severe depression anxiety, Discharge may exacerbated symptoms Progress Toward Problem(s) and Goals/Treatment Plan: Major Depressive Disorder, Generalized Anxiety Disorder, Specific Phobia; Patient is starting to improve clinically. -Continue Zoloft 50 mg PO Daily -Continue Clonazepam 0.25 mg PO Daily/ 0.5 mg PO HS -Individual and group therapy -Physical therapy -Medicine consult appreciated -Disposition planning Estimated Date of D/C: 04/03/17
--- NOTE | 2017-04-02 08:46 | PCM.PYCHPN ---
Psychiatric Progress Note - Psychiatric Progress Note Patient seen today, length of contact: Patient evaluated, case discussed with team, chart reviewed, 35 min Patient Chief Complaint: I'm okay Problems Identified/Issues Discussed: No significant events over the weekend. Patient is improving clinically and reports less anxiety and depression. He is more agreeable to getting out of bed (w/ staff assistance). He is observed eating well. He also has improved sleep. No psychosis/delusions/SI/HI. Diagnostic Results: Chest CT on 03/30/17: Impression- Small airspace consolidation at the inferior aspect of the left lung upper lobe/lingula may represent atelectasis or pneumonia. The possibility of neoplasm is less likely. Follow-up study in 1-3 months if recommended. Small left pleural effusion. Moderate cardiomegaly. Medication Change: No Medical Record Reviewed: Yes Consults ordered or reviewed: Medicine consult appreciated Mental Status Examination - Cognitive Function Orientation: Person, Place, Situation, Time Memory: Impaired Concentration: Poor Association: Loose Fund of Knowledge: WNL Decription of patient's judgement and insights: Fair I/J - Mood Mood: Anxious - Affect Affect: Constricted - Speech Speech: Soft - Formal Thought Process Formal Thought Process: Loosening of associations Psychotic Thoughts and Behaviors: No AH/VH/paranoia/delusions - Suicidal Ideation Suicidal Ideation: No - Homicidal Ideation Homicidal Ideation: No Goal/Treatment Plan - Goal/Treatment Plan Need for Continued Stay: Remain at risks for inpatient hospitalization, Severe depression anxiety, Discharge may exacerbated symptoms Progress Toward Problem(s) and Goals/Treatment Plan: Major Depressive Disorder, Generalized Anxiety Disorder, Specific Phobia; Patient is improving clinically. -Continue Zoloft 50 mg PO Daily -Continue Clonazepam 0.25 mg PO Daily/ 0.5 mg PO HS -Individual and group therapy -Physical therapy -Medicine consult appreciated -Disposition planning- possible referral to [facility] when patient is psychiatrically stable for discharge Estimated Date of D/C: 04/03/17 - Smoking Cessation Smoking Cessation Initiated: No Reason for not providing: Not indicated
--- NOTE | 2017-04-02 09:54 | PCM.BM ---
Treatment Plan Problems - Problems identified on initial assessmt hopelessness/helplessness Date Initiated: 03/25/17 Time Initiated: 20:02 Assessment reference: NA Status: Active Altered Sleep Patterns Date Initiated: 03/25/17 Time Initiated: 20:03 Assessment reference: NA Status: Active Treatment assets and liabiliti Patient Assests: adapts well, cooperative, self-reliant, good support system, negotiates basic needs Patient Liabilities: medical problems - Milieu Protocol Maintain good personal hygiene: daily Encourage regular showers, daily Remind patient to perform daily oral care, other Assist patient to perform ADL's (prn) Conduct patient checks and document Observation sheet: Q15 minutes, Constant Maintain personal safety: every shift Educate patient to report safety concerns to staff, every shift Monitor environment for contraband/sharps Medication safety: Monitor for expected outcome, potential side effects: every shift, Assess barriers to learning: every shift, Assess readiness for medication education: every shift Milieu Narrative: Major Depressive Disorder, Generalized Anxiety Disorder, Specific Phobia; Patient is improving clinically. -Continue Zoloft 50 mg PO Daily -Continue Clonazepam 0.25 mg PO Daily/ 0.5 mg PO HS -Individual and group therapy -Physical therapy -Medicine consult appreciated -Disposition planning- possible referral to [facility] when patient is psychiatrically stable for discharge Family Contact Family involvement: Family/SO is involved Family contact: Patient agrees to contact Family contact name: Pat Brar Family contacted how many times per week?: 2 Family contact comment: [phone] - Goals for Treatment Patient goals for treatment: "The desire to get better again. I have grecia that God will help me get better." Discharge/Continuing Care - Education Needs Education Needs: Family Medication, Family Diagnosis/Disease Process, Family Coping Skills, Family Placement options, Family Community resources, Family Activities of Daily Living, Family Nutrition, Family Uses of Medical Equipment, Family Health Practices/Safety, Family Personal Hygiene/Grooming, Family Aftercare Safety Plan, Patient Medication, Patient Diagnosis/Disease Process, Patient Coping Skills, Patient Placement options, Patient Community resources, Patient Activities of Daily Living, Patient Nutrition, Patient Uses of Medical Equipment, Patient Health Practices/Safety, Patient Personal Hygiene/Grooming, Patient Aftercare Safety Plan - Discharge Discharge Criteria: Tolerates medication w/o severe side effects, Normal sleep pattern, Ability to care for self, Reduction of target symptoms Discharge to:: Other (Subacute Rehabilitation) - Additional Comments 03/27/17 11:23 Pt discussed in team meeting. Pt's progress on the unit discussed. Pt evaluated by PT and recommended [facility]. Pt's medications reviewed and discussed. Pt's social and medical issues discussed. Pipe Setter will contact Pat ascencio for collateral information and to discuss team meeting and treatment plan. Pt provided manual writer with verbal autho/consent to contact Pat ascencio 03/27/17 11:36 - Treatment Team Participation Patient/Family/SO Statement: Major Depressive Disorder, Generalized Anxiety Disorder, Specific Phobia; Patient is improving clinically. -Continue Zoloft 50 mg PO Daily -Continue Clonazepam 0.25 mg PO Daily/ 0.5 mg PO HS -Individual and group therapy -Physical therapy -Medicine consult appreciated -Disposition planning- possible referral to [facility] when patient is psychiatrically stable for discharge Discussed with Family/SO: Yes (Treatment plan will be discussed with family via telephone) Was Patient/Family/SO present at Treatment Team Meeting: Yes Treatment Plan Review - Problem hopelessness/helplessness Date Initiated: 04/02/17 Time Initiated: 09:53 Progress toward outcomes: improved Altered Sleep Patterns Date Initiated: 04/02/17 Time Initiated: 09:53 Progress toward outcomes: improved - Discharge / Continuing Care Discharge to:: Other (Subacute Rehabilitation Vs. [facility] Care Placement) Behavioral Health Services: Outpatient therapy, Other (Medication Management) Health Needs: Follow up care/test, Doctor appointments, Special equipment, Nutritional, Medications/Rx, Recreational/Social
--- NOTE | 2017-04-03 08:04 | PCM.PYCHPN ---
Psychiatric Progress Note - Psychiatric Progress Note Patient seen today, length of contact: Patient evaluated, case discussed with team, chart reviewed, 35 min Patient Chief Complaint: I'm okay Problems Identified/Issues Discussed: No significant events overnight. Patient is calm/cooperative and has been observed eating and sleeping well. His mood has improved and he reports less anxiety. He has been more willing to participate in physical therapy. No adverse effects to medications reported. No psychosis/delusions/SI/HI. Diagnostic Results: Chest CT on 03/30/17: Impression- Small airspace consolidation at the inferior aspect of the left lung upper lobe/lingula may represent atelectasis or pneumonia. The possibility of neoplasm is less likely. Follow-up study in 1-3 months if recommended. Small left pleural effusion. Moderate cardiomegaly. Medication Change: No Medical Record Reviewed: Yes Mental Status Examination - Cognitive Function Orientation: Person, Place, Situation, Time Memory: Impaired Concentration: Poor Association: Loose Fund of Knowledge: WNL Decription of patient's judgement and insights: Fair I/J; limited by dementia - Mood Mood: Neutral - Affect Affect: Broad - Speech Speech: Appropriate - Formal Thought Process Formal Thought Process: Loosening of associations Psychotic Thoughts and Behaviors: No AH/VH/paranoia/delusions - Suicidal Ideation Suicidal Ideation: No - Homicidal Ideation Homicidal Ideation: No Goal/Treatment Plan - Goal/Treatment Plan Progress Toward Problem(s) and Goals/Treatment Plan: Major Depressive Disorder, Generalized Anxiety Disorder, Specific Phobia; Patient has improved clinically and is psychiatrically stable for referral to subacute rehabilitation. -Continue Zoloft 50 mg PO Daily -Continue Clonazepam 0.25 mg PO Daily/ 0.5 mg PO HS -Individual and group therapy -Physical therapy -Medicine consult appreciated -Disposition planning- referral to [facility] Estimated Date of D/C: 04/04/17 - Smoking Cessation Smoking Cessation Initiated: No Reason for not providing: Not indicated
[2017-04-04 05:17] VITALS: BP 151/78; PULSE 63; RESP 18; TEMP 97.5
--- NOTE | 2017-04-04 08:21 | PCM.PYCHDC ---
Mental Status Examination - Mental Status Examination Orientation: Person, Place Memory: Impaired Mood: Neutral Affect: Broad Speech: Appropriate Attention: WNL Concentration: Poor Association: WNL Fund of Knowledge: WNL Formal Thought Process: No Impairment Description of patient's judgement and insight: Fair I/J; limited by dementia Psychotic Thoughts and Behaviors: No AH/VH/paranoia/delusions Suicidal Ideation: No Current Homicidal Ideation?: No Discharge Summary - Discharge Note Reason for Hospitalization: 87Y/O MALE WHO WAS BROUGHT TO THIS ER BY HIS FAMILY AT THE RECOMMENDATION OF HIS PMD, DR. CARDOSO, FOR CRISIS EVALUATION AND POSSIBLE GEROPSYCHIATRIC ADMISSION DUE TO OVERWHELMING ANXIETY AND DEPRESSION THAT HAS COMPLETELY DELIBITATED THIS PT AND LEFT HIM UNABLE TO FUNCTION. PT REPORTED THAT HE FELL IN HIS KITCHEN FOUR MONTHS AGO AND EVER SINCE THAT MOMENT HE CANNONT WALK WHEREAS HE IS OVERWHELMINGLY AFRAID THAT HE WILL FALL AGAIN. HE REPORTED THAT HE IS BED RIDDEN AND ALL HE DOES IS CRY. HE ALSO REPORTED THAT HE IS VERY NERVOUS ALL THE TIME BECAUSE HE HAS PROFOUND THOUGHTS OF FALLING OUT OF BED AND THESE INTRUSIVE THOUGHTS CAUSE HIM TO NOT BE ABLE TO SLEEP WHEREAS HE FEARS FALLING ALL THE TIME. HE REPORTED THAT HE IS DESPERATE FOR HELP BECAUSE HE CANNOT LIVE LIKE THIS ANYMORE. HE REPORTED THAT HE REMEMBERED A TIME WHEN HE WAS VIBRANT AND ACTIVE AND NOW HIS ANXIETY AND DEPRESSION IS SO BAD THAT IT HAS LEFT HIM FEELING HOPELESS AND HELPLESS. HE DENIED SI/HI OR ANY THOUGHTS OF SELF HARM. HE DENIED HAVING A/V/T HALLUCINATIONS; NOR WAS HE OBSERVED TO BE RESPONDING TO INTERNAL/EXTERNAL STIMULI. HE DISPLAYED NO SIGNS OF PSYCHOSIS OR PSYCHIATRIC DANGEROUSNESS. THE PT WAS ALERT AND ORIENTED X3. HE REPORTED SIGNIFICANT SLEEP AND APPETITE DISTURBANCES. COLLATERAL OBTAINED BY INTERNATIONAL BANKER FROM PT'S DAUGHTER JOSE RAMOS REVEALS THAT THE PT FELL 4 MONTHS AGO IN HIS KITCHEN AND EVER SINCE THEN HE HAS BEEN BED RIDDEN WHEREAS HE HAS AN EXTREME PHOBIA OF FALLING AGAIN THEREFORE HE DOES NOT TRY TO WALK. SHE REPORTED THAT HE IS EXTREMELY ANXIOUS AND DEPRESSED ALL THE TIME. SHE REPORTED THAT HE IS EXPERIENCING A DECREASE IN HIS SLEEP PATTERN AND APPETITE. SHE REPORTED THAT HE CONSTANTLY IS CRYING AND FEELS HELPLESS AND HOPELESS. PT'S DAUGHTER REPORTED THAT THE PT'S PMD, DR. CARDOSO, ADVISED THEM TO BRING THE PT TO THIS HOSPITAL FOR EVALUATION FOR POSSIBLE ADMISSION TO THE GEROPYSCHIATRIC UNIT. SHE REPORTED THAT THE PT IS IN DIRE NEED OF ADMISSION. PPHX: DENIES PAST PSYCH HX OR TX W/ MEDICTIONS. NO H/O SUICIDE ATTEMPTS, NO CURRENT SUICIDAL IDEATION/PLAN/INTENT. PMHX: HTN, +PACEMAKER, BPH SHX: DENIES DRUGS/ETOH/CIG. . LIVES W/ AND TWO CHILDREN. FROM [place]. FHX: NO KNOWN FAMILY H/O MENTAL ILLNESS Consultations:: List each consultation separately and include: 1. Reason for request. 2. Findings. 3. Follow-up Consultations: Medicine consult, Physical therapy Summary of Hospital Course include:: 1. Description of specific treatment plan utilized for patients during their course of treatmen. 2. Summarize the time- course for resolution of acute symptoms and/or regressed behaviors. 3. Describe issues identified and worked on during hospitalization. 4. Describe medication utilized. 5. Describe medical problems identified and treated. 6. Reassessment of suicide risk Summary of Hospital Course: [facility] Individual and group therapy were provided. He was stabilized on Zoloft 50 mg PO Daily and Klonopin 0.25 mg PO Daily/ 0.5 mg PO HS. He reports improvement in his depression and anxiety. He is more cooperative with physical therapy and is willing to get out of bed with assistance. Patient is psychiatrically stable for discharge. - Diagnosis (1) Depression Current Visit: Yes Status: Acute - Final Diagnosis (DSM 5) Condition upon Discharge: STABLE DSM 5: Major Depressive Disorder, Generalized Anxiety Disorder, Specific Phobia Disposition: TRANSF TO [facility] Follow-up Treatment Plan: Major Depressive Disorder, Generalized Anxiety Disorder, Specific Phobia; Patient has improved clinically and is psychiatrically stable for discharge to subacute rehabilitation. -Continue Zoloft 50 mg PO Daily -Continue Clonazepam 0.25 mg PO Daily/ 0.5 mg PO HS -Individual and group therapy -Physical therapy -Medicine consult appreciated -Disposition planning- discharge to [facility] - Smoking Cessation Smoking Cessation Medication prescribed: No Reason for not providing: Not indicated - Antipsychotic Medications Pt discharged on 2 or more routine antipsychotic medications: No
== END 2017-04-04 14:10 | DRG 881 ==
LOC: H.ER 13:03 → H.ERHOLD 17:26 → H.STEP 18:54
PROVIDERS: ADMIT Psychiatry & Neurology Psychiatry; ATTEND Psychiatry & Neurology Psychiatry
PROC: GZ51ZZZ Individual Psychotherapy, Behavioral (ICD-10-PCS; 2017-03-25)
PROC: GZHZZZZ Group Psychotherapy (ICD-10-PCS; principal; 2017-03-27)
DX: F32.9 Major depressive disorder, single episode, unspecified (principal); I10 Essential (primary) hypertension; F41.1 Generalized anxiety disorder; F06.4 Anxiety disorder due to known physiological condition; F41.8 Other specified anxiety disorders; N40.0 Benign prostatic hyperplasia without lower urinary tract symptoms; Z74.01 Bed confinement status; Z79.899 Other long term (current) drug therapy; Z91.81 History of falling; Z95.0 Presence of cardiac pacemaker; H26.9 Unspecified cataract; R26.2 Difficulty in walking, not elsewhere classified; F40.8 Other phobic anxiety disorders